=== PATIENT | male | born 1990 | race Caucasian/White ===

== ENCOUNTER 2019-12-01 11:59 | Emergency (ER) | payer BC ==
[~2019-12-01] VITALS: Ht 172.7 cm; Wt 81.6 kg
[2019-12-01] MEDS ORDERED: IV NORMAL SALINE 1000 ML BAG IV ONE ×2 (12:15→13:15)
[2019-12-01] MEDS ORDERED: MORPHINE SULFATE 2 MG/1 ML DISP.SYRIN IV ONE (12:15)
[2019-12-01] MEDS ORDERED: ONDANSETRON 4 MG/2 ML VIAL IV ONE ×2 (12:15→13:15)
[2019-12-01] MEDS ORDERED: KETOROLAC TROMETHAMINE 30 MG INJ IVP ONE (12:15)
[2019-12-01] MEDS ORDERED: ONDANSETRON 4 MG/2 ML VIAL ONE ×2 (12:16→13:10)
[2019-12-01] MEDS ORDERED: MORPHINE SULFATE 4 MG/1 ML DISP.SYRIN ONE (12:16)
[2019-12-01] MEDS ORDERED: KETOROLAC TROMETHAMINE 30 MG INJ ONE (12:16)
[2019-12-01 12:30] LABS: BASOPHILS # (AUTO) 0.1 K/uL (0.0-8.0); BASOPHILS % (AUTO) 0.8 % (0.0-2.0); EOSINOPHILS # (AUTO) 0.1 K/uL (0.0-0.7); EOSINOPHILS % (AUTO) 1.5 % (0.0-7.0); HEMATOCRIT 43.6 % (36.7-47.1); LYMPHOCYTES # (AUTO) 2.2 K/uL (20.0-40.0); LYMPHOCYTES % (AUTO) 32.2 % (20.5-51.5); MEAN CORPUSCULAR HEMOGLOBIN 29.9 uug (23.8-33.4); MEAN CORPUSCULAR HGB CONC 35 g/dL (32.5-36.3); MEAN CORPUSCULAR VOLUME 86.8 fL (73.0-96.2); MONOCYTES # (AUTO) 0.6 K/uL (2.0-10.0); MONOCYTES % (AUTO) 8.4 % (0.0-11.0); NEUTROPHILS # (AUTO) 3.9 K/uL (1.8-8.9); NEUTROPHILS % (AUTO) 57.1 % (38.5-71.5); PLATELET COUNT (AUTO) 320 K/uL (152-348); RED BLOOD CELL COUNT(AUTO) 5.02 MIL/uL (4.06-5.63); WHITE BLOOD COUNT (AUTO) 6.9 K/uL (3.6-10.2)
[2019-12-01 12:39] LABS: POTASSIUM 3.4 mmol/L (3.5-5.1)
[2019-12-01 12:45] LABS: BILIRUBIN,DIRECT 0.1 mg/dL (0.0-0.2); BILIRUBIN,TOTAL 0.4 mg/dL (0.2-1.0); TOTAL PROTEIN, SERUM 8.3 g/dL (6.4-8.2)
[2019-12-01] MEDS ORDERED: PANTOPRAZOLE SODIUM 40 MG VIAL IV ONE (12:45)
[2019-12-01] MEDS ORDERED: PANTOPRAZOLE SODIUM 40 MG VIAL ONE (12:46)
--- NOTE | 2019-12-01 12:51 | NUR ---
U/S at the bedside.
[2019-12-01] MEDS ORDERED: HYDROMORPHONE 1 MG/1 ML DISP.SYRIN ONE (13:10)
[2019-12-01] MEDS ORDERED: HYDROMORPHONE 1 MG/1 ML DISP.SYRIN IV ONE (13:15)
[2019-12-01 13:54] LABS: *BILIRUBIN,URIN NEGATIVE (NEGATIVE); *BLOOD, URINE 2+ (NEGATIVE); *COLOR,URINE YELLOW (YELLOW); *KETONES,URINE NEGATIVE (NEGATIVE); *UROBILINOGEN,URINE 0.2 E.U./dl (NORMAL); LEUKOCYTE ESTERASE ,URINE NEGATIVE (NEGATIVE); NITRITE, URINE NEGATIVE (NEGATIVE); PH,URINE 5.5 (5.0-8.0); UGLUCOSE NEGATIVE (NEGATIVE)
[2019-12-01 13:55] LABS: *CLARITY,URINE HAZY (CLEAR)
[2019-12-01 14:10] LABS: BACTERIA,URINE NONE SEEN /HPF (NONE SEEN); MUCUS,URINE MODERATE /LPF (0-FEW); SQUAMOUS EPITHELIAL CELL,UR FEW /HPF (NONE SEEN); URINE AMORPHOUS URATE FEW /HPF; WBC,URINE 0-3 /HPF (0-3)
[2019-12-01] MEDS ORDERED: TAMSULOSIN HCL 0.4 MG CAP.SR.24H PO ONE (14:15)
[2019-12-01 15:30] VITALS: BP 115/70
== END 2019-12-01 15:31 | disposition home or self-care (01) ==
LOC: ER 11:59
DX: N23 Unspecified renal colic (principal)
CPT/HCPCS: 36415; 76705; 76770; 80048; 80076; 81000; 81001; 85025; 96361; 96374; 96375; 99284; C9113; J1170; J1885; J2270; J2405 ×2; A4663; J7030